=== PATIENT | female | born 1980 | race Caucasian/White ===

== ENCOUNTER 2021-10-28 17:09 | Emergency (ER) | payer BC ==
[2021-10-28 18:07] LABS: HEMOGLOBIN 14.5 gm/dl (12.3-15.3); RED BLOOD COUNT 4.79 M/UL (4.00-5.10); WHITE BLOOD COUNT 5.6 K/UL (4.5-11.0)
[2021-10-28 18:29] LABS: BUN/CREATININE RATIO 10 (0-10)
[2021-10-28] MEDS ORDERED: IBUPROFEN800 MG PO (22:12)
== END 2021-10-28 22:15 | disposition home or self-care (01) ==
LOC: ER1 17:09
PROVIDERS: Nurse Practitioner
DX: R09.1 Pleurisy (principal); I10 Essential (primary) hypertension
CPT/HCPCS: 71046; 80053; 82550; 82553; 83735; 83874; 84484; 85025; 85379; 99283